=== PATIENT | female | born 1950 | race Caucasian/White ===

== ENCOUNTER 2024-10-19 15:34 | Inpatient (IN) | payer MEDICARE, OTHER ==
[~2024-10-19] VITALS: Ht 170.2 cm; Wt 96.2 kg
[2024-10-19 16:06] LABS: BASOPHILS % (AUTO) 0.4 % (0.0-2.0); EOSINOPHILS # (AUTO) 0.1 K/uL (0.0-0.7); EOSINOPHILS % (AUTO) 0.8 % (0.0-6.0); HEMATOCRIT 35 % (33-45); HEMOGLOBIN 11.8 g/dL (11.5-14.8); LYMPHOCYTES # (AUTO) 1.5 K/uL (0.8-4.8); LYMPHOCYTES % (AUTO) 13.6 % (20.0-44.0); MEAN CORPUSCULAR HEMOGLOBIN 29 PG (26.0-33.0); MEAN CORPUSCULAR HGB CONC 34 g/dl (31.0-36.0); MEAN CORPUSCULAR VOLUME 85 fL (82-100); MONOCYTES # (AUTO) 0.7 K/uL (0.1-1.30); MONOCYTES % (AUTO) 6.4 % (2.0-12.0); NEUTROPHILS # (AUTO) 8.5 K/uL (1.8-8.9); NEUTROPHILS % (AUTO) 78.8 % (43.0-81.0); PLATELET COUNT (AUTO) 342 K/uL (150-450); RED BLOOD CELL COUNT(AUTO) 4.08 MIL/uL (4.0-5.2); RED CELL DISTRIBUTION WIDTH 15.4 % (11.5-15.0); WHITE BLOOD COUNT (AUTO) 10.8 K/uL (4.3-11.0)
[2024-10-19 16:13] LABS: CARBON DIOXIDE 25 mmol/L (21-32); CHLORIDE 107 mmol/L (98-107); CREATININE 1.1 mg/dL (0.6-1.3); GLUCOSE 132 mg/dL (74-106); POTASSIUM 3.1 mmol/L (3.5-5.1); SODIUM SERUM 143 mmol/L (136-145); UREA NITROGEN, BLOOD 21 mg/dL (7-18)
[2024-10-19] MEDS ORDERED: FUROSEMIDE 40 MG/4 ML VIAL ONE (16:56)
[2024-10-19] MEDS: FUROSEMIDE 40 MG/4 ML VIAL IV ONE (17:03)
[2024-10-19] MEDS ORDERED: IOHEXOL-350 100 ML VIAL IV ONE (17:18)
[2024-10-19] MEDS ORDERED: IV NS 0.9% 250 ML IV ONE (17:18)
[2024-10-19] MEDS ORDERED: DEXL60CA3 PO (17:33)
[2024-10-19] MEDS ORDERED: NIFE-34 PO (17:33)
[2024-10-19] MEDS ORDERED: MELO-105 PO (17:33)
[2024-10-19] MEDS ORDERED: IBUP-1955 PO (17:33)
[2024-10-19] MEDS ORDERED: METO25TA4 PO (17:33)
[2024-10-19] MEDS ORDERED: ESCI5TAB PO (17:33)
[2024-10-19] MEDS ORDERED: ACET-73 PO (17:33)
[2024-10-19] MEDS ORDERED: POTASSIUM CHLORIDE 20 MEQ TAB.PRT.SR PO ONE (17:48)
[2024-10-19] MEDS: POTASSIUM CHLORIDE 20 MEQ TAB.PRT.SR PO ONE (18:15)
[2024-10-19] MEDS: FUROSEMIDE 40 MG/4 ML VIAL IV SCH (18:47)
[2024-10-19] MEDS: POTASSIUM CHLORIDE 20 MEQ TAB.PRT.SR PO SCH (18:47)
[2024-10-19] MEDS ORDERED: MAG HYDROX/AL HYDROX/SIMETH 30 ML UDC PO PRN (19:00)
[2024-10-19] MEDS ORDERED: Z GUARD REMEDY 4 OZ OINT TP PRN (19:00)
[2024-10-19] MEDS ORDERED: ACETAMINOPHEN 325 MG TABLET PO PRN (19:00)
[2024-10-19] MEDS ORDERED: MAGNESIUM HYDROXIDE 30 ML UDC PO PRN (19:00)
[2024-10-19 19:11] VITALS: BP 145/65; TEMP 98; O2SAT 97
[2024-10-19 20:00] VITALS: BP 147/72; TEMP 98.1; O2SAT 95
[2024-10-19] MEDS: ENOXAPARIN SODIUM 40 MG/0.4 ML DISP.SYRIN SQ SCH (20:24)
[2024-10-19] MEDS: ACETAMINOPHEN ES 500 MG TABLET PO PRN (20:58)
[2024-10-20] VITALS: BP 147/66; TEMP 98.6; O2SAT 94
[2024-10-20 04:00] VITALS: BP 142/69; TEMP 97.9; O2SAT 94
[2024-10-20 06:57] LABS: CALCIUM, SERUM 9.4 mg/dL (8.5-10.1); CREATININE 1.1 mg/dL (0.6-1.3); MAGNESIUM 1.7 mg/dL (1.8-2.4); POTASSIUM 3.2 mmol/L (3.5-5.1)
[2024-10-20 07:01] LABS: BASOPHILS % (AUTO) 0.2 % (0.0-2.0); EOSINOPHILS % (AUTO) 0.4 % (0.0-6.0); HEMATOCRIT 36 % (33-45); HEMOGLOBIN 12.2 g/dL (11.5-14.8); LYMPHOCYTES % (AUTO) 10.6 % (20.0-44.0); MEAN CORPUSCULAR HEMOGLOBIN 29 PG (26.0-33.0); MEAN CORPUSCULAR HGB CONC 34 g/dl (31.0-36.0); MEAN CORPUSCULAR VOLUME 84 fL (82-100); MONOCYTES # (AUTO) 0.7 K/uL (0.1-1.30); MONOCYTES % (AUTO) 7.2 % (2.0-12.0); NEUTROPHILS % (AUTO) 81.6 % (43.0-81.0); PLATELET COUNT (AUTO) 345 K/uL (150-450); RED BLOOD CELL COUNT(AUTO) 4.25 MIL/uL (4.0-5.2); RED CELL DISTRIBUTION WIDTH 15.6 % (11.5-15.0); WHITE BLOOD COUNT (AUTO) 9.8 K/uL (4.3-11.0)
[2024-10-20 07:30] VITALS: BP 143/75; TEMP 98.1; O2SAT 96
[2024-10-20] MEDS: ESCITALOPRAM OXALATE (10 MG) 10 MG TABLET PO SCH (08:07)
[2024-10-20] MEDS: METOPROLOL SUCCINATE 25 MG TAB.SR.24H PO SCH (08:07)
[2024-10-20] MEDS: ONDANSETRON HCL/PF 4 MG/2 ML VIAL IVP PRN (08:56)
[2024-10-20] MEDS: METOPROLOL TARTRATE 50 MG TABLET PO SCH (09:00)
[2024-10-20] MEDS: FUROSEMIDE 40 MG/4 ML VIAL IV SCH (09:46)
[2024-10-20] MEDS: POTASSIUM CHLORIDE 20 MEQ TAB.PRT.SR PO SCH (09:46)
[2024-10-20] MEDS: Magnesium 1GM/D5W 100ML PREMIX 100 ML IV SCH (09:46)
[2024-10-20] MEDS: DICLOFENAC TOPICAL 100 GM TUBE TP PRN (10:00)
[2024-10-20] MEDS: NIFEDIPINE XL 60 MG TAB.ER.24 PO SCH (10:38)
[2024-10-20] MEDS ORDERED: IOHEXOL-350 100 ML VIAL IV ONE (14:16)
[2024-10-20] MEDS ORDERED: IV NS 0.9% 250 ML IV ONE (14:16)
[2024-10-20] MEDS ORDERED: NITROGLYCERIN 0.4 MG/TAB BOTTLE SL ONE (15:00)
[2024-10-20] MEDS ORDERED: METOPROLOL TARTRATE INJ 5 MG/5 ML AMPUL IVP PRN (15:00)
[2024-10-20 16:00] VITALS: BP 136/45; TEMP 98.1; O2SAT 93
[2024-10-20 20:36] VITALS: BP 117/44; TEMP 98.2; O2SAT 94
[2024-10-20] MEDS: ZOLPIDEM TARTRATE 5 MG TABLET PO PRN (22:09)
[2024-10-21 04:48] VITALS: BP 117/62; TEMP 98.1; O2SAT 91
[2024-10-21 06:37] LABS: BASOPHILS % (AUTO) 0.5 % (0.0-2.0); EOSINOPHILS # (AUTO) 0.1 K/uL (0.0-0.7); EOSINOPHILS % (AUTO) 0.7 % (0.0-6.0); HEMATOCRIT 37 % (33-45); HEMOGLOBIN 12.1 g/dL (11.5-14.8); LYMPHOCYTES # (AUTO) 1.4 K/uL (0.8-4.8); LYMPHOCYTES % (AUTO) 16.1 % (20.0-44.0); MEAN CORPUSCULAR HEMOGLOBIN 28 PG (26.0-33.0); MEAN CORPUSCULAR HGB CONC 33 g/dl (31.0-36.0); MEAN CORPUSCULAR VOLUME 85 fL (82-100); MONOCYTES # (AUTO) 0.8 K/uL (0.1-1.30); MONOCYTES % (AUTO) 8.6 % (2.0-12.0); NEUTROPHILS # (AUTO) 6.6 K/uL (1.8-8.9); NEUTROPHILS % (AUTO) 74.1 % (43.0-81.0); PLATELET COUNT (AUTO) 338 K/uL (150-450); RED BLOOD CELL COUNT(AUTO) 4.36 MIL/uL (4.0-5.2); RED CELL DISTRIBUTION WIDTH 15.3 % (11.5-15.0)
[2024-10-21 07:06] LABS: CREATININE 1.3 mg/dL (0.6-1.3); POTASSIUM 3.4 mmol/L (3.5-5.1)
[2024-10-21 07:30] VITALS: BP 139/59; TEMP 98.6; O2SAT 94
[2024-10-21 08:24] VITALS: BP 139/59
[2024-10-21] MEDS ORDERED: METO50TA16 PO (09:34)
[2024-10-21] MEDS: POTASSIUM CHLORIDE 20 MEQ TAB.PRT.SR PO SCH (09:35)
[2024-10-21 09:39] VITALS: TEMP 98.1
[2024-10-21] MEDS ORDERED: FURO-145 PO (09:41)
== END 2024-10-21 14:30 | disposition home health service (06) | DRG 291 ==
LOC: ER 15:36 → TELE 17:28 → MED 10-21 10:46
PROVIDERS: ADMIT Internal Medicine; ATTEND Internal Medicine
DX: I13.0 Hypertensive heart and chronic kidney disease with heart failure and stage 1 through stage 4 chronic kidney disease, or unspecified chronic kidney disease (principal); I50.21 Acute systolic (congestive) heart failure; J96.01 Acute respiratory failure with hypoxia; E87.0 Hyperosmolality and hypernatremia; J98.11 Atelectasis; N17.9 Acute kidney failure, unspecified; R07.9 Chest pain, unspecified; E66.9 Obesity, unspecified; K21.9 Gastro-esophageal reflux disease without esophagitis; Z68.33 Body mass index [BMI] 33.0-33.9, adult; E87.6 Hypokalemia; E83.9 Disorder of mineral metabolism, unspecified; E11.22 Type 2 diabetes mellitus with diabetic chronic kidney disease; Z20.822 Contact with and (suspected) exposure to COVID-19; E66.01 Morbid (severe) obesity due to excess calories; I25.10 Atherosclerotic heart disease of native coronary artery without angina pectoris; N18.9 Chronic kidney disease, unspecified
CPT/HCPCS: 36415; 71045-TC; 75574; 76536-TC; 80048-TC; 83735-TC; 83880; 84100-TC; 84484-TC; 85025-TC; 85378-TC; 93307-TC; A4223; G0378; J1650; J1938; J2405; J3475; J7050; Q9967